=== PATIENT | female | born 1945 | race Caucasian/White ===

== ENCOUNTER 2021-01-12 12:14 | Emergency (ER) | payer MEDICARE, MEDICAID, SELFPAY ==
[2021-01-12] VITALS (8 sets, daily range): BP systolic 141–161; BP diastolic 61–89; PULSE 57–65; RESP 13–20; TEMP 36.1–36.8; O2SAT 96–100
[2021-01-12 12:52] LABS: Add Urine Microscopic? YES; Appearance Urine Cloudy (Clear); Bilirubin Urine Negative (Negative); Blood Urine Negative (Negative); Color Urine Amber (Yellow); Glucose Urine UA Negative (Negative); Ketones Urine Negative (Negative); Leukocyte Esterase Ur 2+ LEU/UL (Negative); Mucus Urine Rare /lpf; Nitrate Urine Negative (Negative); Protein Urine 2+ mg/dL (Negative); Squamous Epithelial Cell Urine Moderate /hpf (Few); Urobilinogen Urine Negative mg/dL (<2.0); WBC Urine >75 /hpf
[2021-01-12 12:55] LABS: Specific Grav Ur 1.032 (1.001-1.035)
--- NOTE | 2021-01-12 14:17 | ED.GENADULT ---
HPI - General Adult General Chief complaint: Urogenital-Female Stated complaint: dysuria Time Seen by Provider: 01/12/21 14:10 Source: RN notes reviewed History of Present Illness HPI narrative: Patient presents to emergency department from [facility] for dysuria. Patient states for the past 3 days she has been having pain with urination as well as frequent urination she denies having any fevers or chills chest pain shortness of breath, abdominal pain nausea vomiting diarrhea or any other symptoms. Patient states that she is on 2 L nasal cannula at all times at the residential and denies any other symptoms Related Data Allergies Allergy/AdvReac Type Severity Reaction Status Date / Time sulfamethoxazole Allergy Rash Verified 01/12/21 14:22 [From Bactrim] trimethoprim [From Bactrim] Allergy Rash Verified 01/12/21 14:22 Review of Systems Review of Systems: Narrative: Gen.: Denies fevers or chills ENT: Denies congestion Respiratory: Denies shortness of breath or cough CV: Denies chest pain or palpitations GI: Denies abdominal pain nausea, emesis or diarrhea see HPI Musculoskeletal: Denies back pain or muscle pain Neuro: Denies numbness, tingling, weakness or focal weakness Skin: Denies rash Except as documented, all other systems reviewed and negative [facility] Social History Social History (Updated 01/12/21 @ 14:18 by Giancarlo Kurtz DO) Smoking status: Never smoker Exam Narrative: Exam Narrative: APPEARANCE: No acute distress, nontoxic, resting in bed EYES: EOMI HEENT: Normocephalic, atraumatic, OMM RESPIRATORY: No respiratory distress Clear to auscultation bilaterally with no rhonchi wheezing or rales. CARDIOVASCULAR: Regular rate and rhythm without murmurs rubs or gallops. ABDOMINAL: Soft, nontender, nondistended, no rebound or guarding MUSCULOSKELETAl: Moves all extremities. No clubbing, cyanosis or edema. NEURO: Awake and alert x 4. Following commands, speech normal, no focal deficits SKIN:: Warm, dry. No rashes lesions or abrasions PSYCHIATRIC: Normal affect/mood, Course Course Emergency Course: Discussed with patient results of workup and diagnosis. Discussed need for follow-up with primary care, proper use of medication, and reasons to return to the emergency department. Patient understands and agrees to current treatment plan Vital Signs Vital signs: Vital Signs Temperature 98.3 F 01/12/21 12:31 Pulse Rate 65 01/12/21 12:31 Respiratory Rate 16 01/12/21 12:31 Blood Pressure 141/61 H 01/12/21 12:31 Pulse Oximetry 99 01/12/21 12:31 Temperature 97 F L 01/12/21 14:16 Pulse Rate 60 01/12/21 14:16 Respiratory Rate 16 01/12/21 14:16 Blood Pressure 158/89 H 01/12/21 14:16 Pulse Oximetry 98 01/12/21 14:16 Medical Decision Making Vital Signs Vital Signs: Vital Signs Temperature 98.3 F 01/12/21 12:31 Pulse Rate 65 01/12/21 12:31 Respiratory Rate 16 01/12/21 12:31 Blood Pressure 141/61 H 01/12/21 12:31 Pulse Oximetry 99 01/12/21 12:31 Temperature 97 F L 01/12/21 14:16 Pulse Rate 60 01/12/21 14:16 Respiratory Rate 16 01/12/21 14:16 Blood Pressure 158/89 H 01/12/21 14:16 Pulse Oximetry 98 01/12/21 14:16 Lab Data Labs: Lab Results 01/12/21 Range/Units 12:34 Urine Color Miesha (Yellow) Urine Appearance Cloudy H (Clear) Urine pH 5.0 (5.0-9.0) Ur Specific [place] 1.032 (1.001-1.035) Urine Protein 2+ H (Negative) mg/dL Urine Glucose (UA) Negative (Negative) mg/dL Urine Ketones Negative (Negative) mg/dL Ur Blood (Man) Negative (Negative) Urine Nitrate Negative (Negative) Urine Bilirubin Negative (Negative) Urine Urobilinogen Negative (<2.0) mg/dL Leukocyte Esterase Rfl 2+ H (Negative) CAITLIN/UL Urine RBC 6-10 H (0-2) /hpf Urine WBC >75 H /hpf Ur Squamous Epith Cells Moderate H (Few) /hpf Urine Mucus Rare /lpf Discharge Plan Discharge Clinical Impression: Urinary tract inf
[2021-01-12] MEDS: CEPHALEXIN 500 MG CAPSULE PO (14:54)
--- NOTE | 2021-01-12 15:02 | PC.NURSE ---
Pt unable to provide medical / medication Hx. AAOx4, poor historian.
== END 2021-01-12 15:36 | disposition home or self-care (01) ==
PROVIDERS: Emergency Medicine; Emergency Provider Emergency Medicine; PCP Family Medicine
DX: N39.0 Urinary tract infection, site not specified (principal)
CPT/HCPCS: 81001; 87077; 87086; 87186; 99283; A9270